=== PATIENT | male | born 1950 | race Caucasian/White ===

== ENCOUNTER 2021-05-31 15:11 | Inpatient (IN) | payer MEDICARE ==
[~2021-05-31] VITALS: Ht 171.4 cm; Wt 96.0 kg
[2021-07-24] VITALS (11 sets, daily range): BP systolic 114–152; BP diastolic 64–88; PULSE 63–104; TEMP 97.1–98.7
[2021-07-24] MEDS ORDERED: FLOMAX 0.40.4 MG/CAP PO (09:26)
[2021-07-24] MEDS ORDERED: LOPRESSOR 550 MG/TAB PO (09:26)
[2021-07-24] MEDS ORDERED: NORVASC 5MG5 MG/TAB PO (09:27)
[2021-07-24] MEDS ORDERED: DETROL LA4 PO (09:27)
[2021-07-24] MEDS ORDERED: LIPITOR 40MG TA40 MG PO (09:27)
[2021-07-24] MEDS ORDERED: ASPIRIN 81M81 MG/TA2 PO (09:56)
[2021-07-24] MEDS ORDERED: REVATIO20 MG PO (09:58)
[2021-07-24] MEDS ORDERED: TYLENOL 500MG500 MG PO (09:59)
[2021-07-24] MEDS ORDERED: CENTRUM SILVER1 CTB PO (09:59)
[2021-07-24] MEDS ORDERED: MIRALAX PA17 GM/Dose PO (10:00)
[2021-07-24] MEDS ORDERED: ZYRTEC 10MG10 MG PO (10:00)
[2021-07-24] MEDS ORDERED: FERROUS SU325 MG/TAB PO (10:01)
[2021-07-24] MEDS ORDERED: VITAMIN C500 MG PO (10:02)
[2021-07-24] MEDS ORDERED: FOLIC ACID0.4 MG PO (10:02)
[2021-07-24] MEDS ORDERED: FIBERCON PO (10:03)
[2021-07-25 04:07] VITALS: BP 143/79; PULSE 93; TEMP 97.7
[2021-07-25 07:00] VITALS: BP 129/77; PULSE 85; TEMP 98.1
[2021-07-25 08:06] LABS: HEMATOCRIT 40.8 % (42.0-52.0); HEMOGLOBIN 13.2 g/dl (13.5-18.0)
[2021-07-25 11:37] VITALS: BP 136/76; PULSE 75; TEMP 97.7
[2021-07-25 15:53] VITALS: BP 127/80; PULSE 74; TEMP 97.5
[2021-07-25 19:34] VITALS: BP 126/82; PULSE 82; TEMP 97.7
[2021-07-26 00:28] VITALS: BP 120/72; PULSE 83; TEMP 97.4
[2021-07-26 03:04] VITALS: BP 124/79; PULSE 85; TEMP 97.2
[2021-07-26] MEDS ORDERED: ULTRAM 50MG TAB50 MG PO (07:10)
[2021-07-26] MEDS ORDERED: ASPI325T6 PO (07:10)
[2021-07-26] MEDS ORDERED: ZOFRAN ODT4 MG PO (07:11)
[2021-07-26 07:44] VITALS: BP 125/73; PULSE 81; TEMP 97.8
[2021-07-26 12:31] VITALS: BP 126/71; PULSE 74; TEMP 98
== END 2021-07-26 14:45 | disposition home or self-care (01) | DRG 470 ==
LOC: INPTSU 07-24 08:28 → SURG 07-24 08:28
PROVIDERS: ADMIT Orthopaedic Surgery
PROC: 0SRD0J9 Replacement of Left Knee Joint with Synthetic Substitute, Cemented, Open Approach (ICD-10-PCS; principal; 2021-07-24 10:30)
DX: M17.12 Unilateral primary osteoarthritis, left knee (principal); I10 Essential (primary) hypertension; K21.9 Gastro-esophageal reflux disease without esophagitis; F32.9 Major depressive disorder, single episode, unspecified; R11.2 Nausea with vomiting, unspecified; T40.2X5A Adverse effect of other opioids, initial encounter; Z79.82 Long term (current) use of aspirin; Z23 Encounter for immunization
CPT/HCPCS: A9284; C1713; C1776; J0690; J2250; J2270; J2370; J2405; J2704; J3010; J7030; J7120